=== PATIENT | female | born 1965 | race Caucasian/White ===

== ENCOUNTER 2019-10-20 07:22 | Day surgery (SDC) | payer BC ==
[~2019-10-20 07:22] MED LIST: Lactated Ringers 1,000 ML IV SCH; Lidocaine 1%/Sod Bicarbonate in NS 8.4% 1 ML Syringe IDERM PRN; Sodium Chloride 0.9% 10 ML Syringe FLUSH PRN
[2019-10-20] MEDS ORDERED: Bupivacaine 0.5% 30 ML SDV ONE (07:31)
[2019-10-20] MEDS ORDERED: Lidocaine 1% with EPINEPHrine 1:100,000 20 ML MDV ONE (07:31)
--- NOTE | 2019-10-20 08:37 | PCM.OPNOTE ---
- General Post-Op/Procedure Note Date of Surgery/Procedure: 10/20/19 Operative Procedure(s): Laparoscopic assisted vaginal hysterectomy and bilateral salpingectomy Findings: Small, atrophic appearing ovaries. Large, bulbous uterus. Moderate amount of scar tissue in upper abdomen, presumed to be from prior bowel resection. Minimal if any scar tissue in pelvis Pre Op Diagnosis: Abnormal uterine bleeding - Failed medical management. Morbid obesity - BMI 46 Post-Op Diagnosis: Same Anesthesia Technique: General ET Tube Primary Surgeon: Lisa Hawley Secondary Surgeon: Lainey Sanches Anesthesia Provider: Carlos Duque Reason Director Of Knowledge Management Was Necessary: BMI of patient, speed/safety of procedure Pathology: Cervix, uterus, and bilateral fallopian tubes sent to pathology for further evaluation Fluid Replacement, Intraop: 2,800 Output, Urine Amount: 100 EBL in mLs: 400 Complications: None Condition: Good Free Text/Narrative:: The risks, benefits, indications, potential complications, and alternatives were explained to the patient and informed consent obtained. The patient was taken to the Operating Room where general anesthesia was induced without complication. The patient was placed in dorsal lithotomy with Burke Stirrups and an exam under anesthesia revealed the findings detailed above. The patient was then prepped and draped in the usual sterile fashion. A sterile bivalve speculum was placed into the vagina and the anterior lip of the cervix was grasped with a single tooth tenaculum and a [employer] uterine manipulator was placed to allow uterine manipulation throughout the procedure. The speculum and single tooth tenaculum were removed from the vagina. A Martínez catheter was placed in sterile fashion. Attention was then turned to the patients abdomen where a small, vertical incision was made inferior to the umbilicus along scar from prior abdominal surgery. Incision carried down to fascia which was grasped with rich clamps and sharply incised. Two ends of fascia tagged with sutures of 0 Vicryl. Ther peritoneum was grasped and elevated with hemostat and incised sharply with a Metzenbaum scissors. A 10 mm trocar was then placed into the abdomen under direct visualization. A pneumoperitoneum was obtained with C02 gas to a pressure of 15 mm Hg. 5 mm skin incisions were made in both the left and right lower quadrants approximately 10 cm lateral and 3 cm inferior to the umbilicus. 5 mm blunt trocars were inserted into the abdomen under direct visualization with care to avoid the abdominal wall vasculature. A blunt probe and grasper were inserted through the accessory ports and a survey of the abdomen revealed the findings detailed above. The right fallopian tube was elevated with the blunt graspers at the fimbriated end. The LigaSure was used to grasp, elevate, cauterize and transect the mesosalpinx from the fimbriated end toward the uterus. It was transected at level of the uterus using the LigaSure and removed easily out the 5 mm port. The round ligament on the right was then elevated, cauterized, and transected with the Ligasure. Hemostasis was noted. Next, the vesicouterine peritoneum was elevated gently with a blunt grasper and the LigaSure and blunt dissection were used to make a bladder flap. Two more small bites along the right side of the uterus were made with the Ligasure to skeletonize the uterine artery. Hemostasis was noted. The exact same procedure was carried out on the left. The CO2 gas was turned off and the laparoscope was removed. Attention was then turned to the vaginal portion of the procedure. A short weighted speculum was placed in the vagina, and the cervix was grasped with a single toothed tenaculum. The cervix was injected circumferentially with 10 mL of 1% lidocaine with dilute epinephrine. The cervix was then circumferentially incised with a scalpel. A Raytec was used to bluntly dissect the cervix circumferentially until an avascular plane was obtained. The posterior cul-de-sac was entered sharply without difficulty. A 0-Vicryl pop-off suture was placed at six o'clock to include the posterior vaginal mucosa and posterior peritoneum. This stitch was tagged with a straight clamp to help with vaginal cuff closure at the end of the case. The short weighted speculum was replaced by the long weighted speculum. The uterosacral ligaments were grasped on either side with the LigaSure, cauterized, and transected. The bladder was dissected off the pubovesical cervical fascia anteriorly with a sponge and blunt dissectio n. The anterior cul-de-sac was then entered sharply without difficulty. The cardinal ligaments were then serially clamped on both sides with the LigaSure, cauterized, and transected. The uterine arteries were then clamped, cauterized, and transected. The fundus and adnexa were confirmed to be free of any further peritoneal attachments and then were pulled out through the vagina. The posterior peritoneum was closed with a running, locked sutures of 0 Vicryl. Next, the vaginal cuff was closed with two separate sutures of 0 Vicryl, started at either apex, and run towards the midline. Attention was then again turned to the abdomen. All members of the surgical team changed gloves. The laparoscope was again inserted and the abdomen was again insufflated with CO2. The pedicles were again visualized. Dionisio seal was placed along the vaginal cuff. Hemostasis was confirmed. The patient was taken out of Trendelenberg position. The accessory trocars were removed under direct visualization. The pneumoperitoneum was allowed to escape. The umbilical trocar was removed and lastly the camera was removed from the abdomen under direct visualization to confirm no herniation into the port site. The previous sutures of 0 Vicryl were tied together to reapproximate the fascia of this port site. All skin incisions were re-approximated with 4-0 Monocryl and sealed with Dermabond. Hemostasis was noted. Approximately 10 cc of 0.25% Marcaine was injected into the subcutaneous tissues surrounding the skin incisions for local anesthesia. All sponge, lap, needle, and instrument counts were correct x 2. The patient tolerated the procedure well and there were no complications. Martínez catheter removed and patient taken to PACU
--- NOTE | 2019-10-20 08:42 | PCM.PREANE ---
Preanesthetic Assessment - Procedure Proposed Procedure: lap assisted vag hyst - Anesthesia/Transfusion/Family Hx Anesthesia History: Prior Anesthesia Without Reaction Family History of Anesthesia Reaction: No Transfusion History: No Prior Transfusion(s) - Review of Systems General: No Symptoms Pulmonary: No Symptoms Cardiovascular: No Symptoms Gastrointestinal: No Symptoms Neurological: No Symptoms Other: Reports: Diabetes, Depression, Anxiety - Physical Assessment NPO Status Date: 10/19/19 NPO Status Time: 21:00 Vital Signs: 142/76 84 96% Height: 5 ft 7 in Weight: 134.1 kg ASA Class: 3 Mental Status: Alert & Oriented x3 Airway Class: Mallampati = 1 Dentition: Reports: Normal Dentition Thyro-Mental Finger Breadths: 3 Mouth Opening Finger Breadths: 3 ROM/Head Extension: Full Lungs: Clear to Auscultation, Normal Respiratory Effort Cardiovascular: Regular Rate, Regular Rhythm - Lab Values: Laboratory Last Values POC Glucose 181 mg/dL (70-105) H 10/20/19 07:35 COVID-19 PCR Not detected (NOT DETECT) 10/18/19 13:00 - Allergies Allergies/Adverse Reactions: Allergies Allergy/AdvReac Type Severity Reaction Status Date / Time exenatide [From Bydureon] AdvReac Nausea Verified 10/20/19 08:01 liraglutide [From Victoza] AdvReac Other Verified 10/20/19 08:01 metformin AdvReac Nausea Verified 10/20/19 08:01 - Blood Blood Available: Yes - Acknowledgements Anesthesia Type Planned: General Anesthesia Pt an Appropriate Candidate for the Planned Anesthesia: Yes Alternatives and Risks of Anesthesia Discussed w Pt/Guardian: Yes Pt/Guardian Understands and Agrees with Anesthesia Plan: Yes PreAnesthesia Questionnaire HEENT History: Reports: Cataract Cardiovascular History: Reports: Hypertension Respiratory History: Reports: None Gastrointestinal History: Reports: None CAMPUS 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: , Spontaneous Other OB/BYN History: DIlation and currettage, dysmenorrhea, irregular menses Musculoskeletal History: Reports: Arthritis Psychiatric History: Reports: Anxiety, Depression Endocrine/Metabolic History: Reports: Diabetes, Type II, Obesity/BMI 30+, Vitamin D Deficiency Hematologic History: Reports: Anemia - Past Surgical History GI Surgical History: Reports: Small Bowel - SUBSTANCE USE Smoking Status *Q: Never Smoker Tobacco Use Within Last Twelve Months: No Second Hand Smoke Exposure: Yes Days Per Week of Alcohol Use: 0 Recreational Drug Use History: No - HOME MEDS Home Medications: Home Meds Ascorbic Acid [Vitamin C] 1,000 mg PO DAILY 10/19/19 [History] Aspirin 81 mg PO DAILY 10/19/19 [History] Cyanocobalamin (Vitamin B12) [Vitamin B12] 500 mcg PO DAILY 10/19/19 [History] Hydrochlorothiazide/Losartan [Hyzaar 50-12.5 MG] 1 tab PO DAILY 10/19/19 [History] LORazepam [Ativan] 0.5 mg PO Q8HR PRN 10/19/19 [History] Meloxicam [Mobic] 15 mg PO DAILY 10/19/19 [History] Multivitamin [Multivitamins] 1 cap PO DAILY 10/19/19 [History] Potassium Gluconate [Potassium] 99 mg PO BID 10/19/19 [History] Rosuvastatin [Crestor] 5 mg PO BEDTIME 10/19/19 [History] SitaGLIPtin [Januvia] 100 mg PO DAILY 10/19/19 [History] - CURRENT (IN HOUSE) MEDS Current Meds: Current Medications Lactated Ringer's (Ringers, Lactated) 1,000 mls @ 125 mls/hr IV ASDIRECTED KIMBERLY Last Admin: 10/20/19 08:31 Dose: 125 mls/hr Documented by: Lidocaine/Sodium Bicarbonate (Buffered Lidocaine 1% In Ns 8.4%) 0.25 ml IDERM ONETIME PRN PRN Reason: Prior to IV Start Stop: 10/20/19 18:00 Last Admin: 10/20/19 08:31 Dose: 0.25 ml Documented by: Sodium Chloride (Saline Flush) 10 ml FLUSH ASDIRECTED PRN PRN Reason: Keep Vein Open Stop: 10/20/19 18:00 Discontinued Medications Bupivacaine HCl (Marcaine 0.5%) Confirm Administered Dose 30 ml .ROUTE .STK-MED ONE Stop: 10/20/19 07:32 Lidocaine/Epinephrine (Xylocaine 1% With Epinephrine 1:100,000) Confirm Administered Dose 20 ml .ROUTE .STK-MED ONE Stop: 10/20/19 07:32
[2019-10-20] MEDS ORDERED: Ondansetron 4 MG/2 ML SDV ONE (09:02)
[2019-10-20] MEDS ORDERED: Rocuronium 50 MG/5 ML Vial ONE ×2 (09:02→10:43)
[2019-10-20] MEDS ORDERED: Propofol 200 MG/20 ML SDV ONE (09:02)
[2019-10-20] MEDS ORDERED: Midazolam 1 MG/ML 2 ML SDV ONE (09:03)
[2019-10-20] MEDS ORDERED: fentaNYL 250 MCG/5 ML SDV ONE ×2 (09:03→10:12)
[2019-10-20] MEDS ORDERED: Lidocaine 1% 4 ML ONE (09:03)
[2019-10-20] MEDS ORDERED: ceFAZolin 1 GM Vial ONE (09:06)
[2019-10-20] MEDS ORDERED: HYDROmorphone 0.5 MG/0.5 ML Syringe ONE ×2 (10:10)
[2019-10-20] MEDS ORDERED: Lactated Ringers 1,000 ML ONE (11:02)
[2019-10-20] MEDS ORDERED: ePHEDrine Sulfate/0.9% NaCl/Pf 25 MG/5 ML SYRINGE IV ONE (11:02)
[2019-10-20] MEDS ORDERED: Ketorolac 30 MG/ML SDV ONE (12:26)
[2019-10-20] MEDS ORDERED: fentaNYL 100 MCG/2 ML SDV IVPUSH PRN (12:54)
--- NOTE | 2019-10-20 12:55 | PCM.POSTAN ---
POST ANESTHESIA ASSESSMENT - MENTAL STATUS Mental Status: Somnolent - VITAL SIGNS Vital Signs: Last Vital Signs Temp 36.8 C 10/20/19 07:30 Pulse 84 10/20/19 07:30 Resp 16 10/20/19 07:30 BP 142/76 H 10/20/19 07:30 Pulse Ox 96 10/20/19 07:30 - RESPIRATORY Respiratory Status: Respiratory Rate WNL, Airway Patent, O2 Saturation Stable, Supplemental Oxygen - CARDIOVASCULAR CV Status: Pulse Rate WNL, Blood Pressure Stable - GASTROINTESTINAL GI Status: No Symptoms - PAIN Pain Score: 0 - POST OP HYDRATION Hydration Status: Adequate & Stable - OBSERVATIONS Free Text/Narrative:: no anesthesia complications oted
--- NOTE | 2019-10-20 14:26 | PCM48HPAN ---
Post Anesthesia Note - EVALUATION WITHIN 48HRS OF ANESTHETIC Vital Signs in Normal Range: Yes Patient Participated in Evaluation: No (Per SILKE Bryant) Respiratory Function Stable: Yes Airway Patent: Yes Cardiovascular Function Stable: Yes Hydration Status Stable: Yes Pain Control Satisfactory: Yes Nausea and Vomiting Control Satisfactory: Yes Mental Status Recovered: Yes Vital Signs: Last Vital Signs Temp 36.2 C 10/20/19 13:45 Pulse 81 10/20/19 14:00 Resp 11 L 10/20/19 14:00 BP 144/74 H 10/20/19 14:00 Pulse Ox 98 10/20/19 14:00 - COMMENTS/OBSERVATIONS Free Text/Narrative:: no anesthesia complications noted
[2019-10-20] MEDS ORDERED: Ondansetron 4 MG/2 ML SDV IVPUSH SCH (14:30)
[2019-10-20] MEDS ORDERED: Promethazine 25 MG in Sodium Chloride 0.9% 50 ML IV ONE (15:54)
[2019-10-20] MEDS ORDERED: Acetaminophen/oxyCODONE 325-5 MG Tab PO PRN (15:55)
== END 2019-10-20 20:05 | disposition home or self-care (01) ==
LOC: JD.SDS 07:22 → JD.MS 14:37 → JD.SDS 20:05
PROVIDERS: ATTEND Obstetrics & Gynecology
DX: D25.2 Subserosal leiomyoma of uterus (principal); N72 Inflammatory disease of cervix uteri; N88.8 Other specified noninflammatory disorders of cervix uteri; N80.0 Endometriosis of uterus; F41.9 Anxiety disorder, unspecified; F32.9 Major depressive disorder, single episode, unspecified; E11.9 Type 2 diabetes mellitus without complications; I10 Essential (primary) hypertension; E66.01 Morbid (severe) obesity due to excess calories; Z11.59 Encounter for screening for other viral diseases; Z79.82 Long term (current) use of aspirin; Z88.8 Allergy status to other drugs, medicaments and biological substances; Z79.899 Other long term (current) drug therapy; Z79.84 Long term (current) use of oral hypoglycemic drugs; Z68.42 Body mass index [BMI] 45.0-49.9, adult; Z77.22 Contact with and (suspected) exposure to environmental tobacco smoke (acute) (chronic)
CPT/HCPCS: 36415; 51701; 58552; 82962; 86850; 86900; 86901; 87635; A9270; J0171; J0690; J1170; J1885; J2001; J2250; J2405; J2550; J2704; J3010; J3490; J7050; J7120; 00944; U0002

== ENCOUNTER 2020-03-13 17:58 | Emergency (ER) | payer BC ==
[2020-03-13] MEDS ORDERED: Sodium Chloride 0.9% 10 ML Syringe FLUSH PRN (18:28)
[2020-03-13] MEDS ORDERED: Ketorolac 30 MG/ML SDV IVPUSH ONE (19:16)
[2020-03-13] MEDS ORDERED: Sodium Chloride 0.9% 1,000 ML IV STA (19:16)
[2020-03-13] MEDS ORDERED: Iopamidol 612 MG/ML 50 ML SDV IVPUSH ONE (19:30)
[2020-03-13] MEDS ORDERED: Iopamidol 612 MG/ML 100 ML Bottle IVPUSH ONE (19:30)
[2020-03-13] MEDS ORDERED: Sodium Chloride 0.9% 10 ML Syringe FLUSH ONE (19:30)
--- NOTE | 2020-03-13 20:30 | EDM.PDOC ---
ED HPI GENERAL MEDICAL PROBLEM - General Chief Complaint: Back Pain or Injury Stated Complaint: BACK PAIN/SENT OVER FROM [facility] Time Seen by Provider: 03/13/20 18:24 Source of Information: Reports: Patient, RN Notes Reviewed, Other ([facility]) History Limitations: Reports: No Limitations - History of Present Illness INITIAL COMMENTS - FREE TEXT/NARRATIVE: Patient is a 55-year-old female presenting to the emergency department with complaints of left-sided flank pain. Symptoms began on Friday of last week and had getting progressively worse since that time. She has taken Aleve and Tylenol with little to no relief. Pain is worsened by movement and deep breathing. She was seen at the walk-in clinic at [facility] prior to coming to the ER. Urinalysis was completed there and showed findings consistent with a urinary tract infection. She was sent here for further evaluation for concerns of a possible pyelonephritis. Patient denies any dysuria or hematuria. She has no history of kidney stones. Denies any fever chills Left Back Pain Score (Numeric/FACES): 10 - Related Data Allergies Allergy/AdvReac Type Severity Reaction Status Date / Time exenatide [From Bydureon] AdvReac Nausea Verified 03/13/20 18:19 liraglutide [From Victoza] AdvReac Other Verified 03/13/20 18:19 metformin AdvReac Nausea Verified 03/13/20 18:19 Home Meds: Home Meds Ascorbic Acid [Vitamin C] 1,000 mg PO DAILY 10/19/19 [History] Aspirin 81 mg PO DAILY 10/19/19 [History] Hydrochlorothiazide/Losartan [Hyzaar 50-12.5 MG] 1 tab PO DAILY 10/19/19 [History] LORazepam [Ativan] 0.5 mg PO Q8HR PRN 10/19/19 [History] Meloxicam [Mobic] 15 mg PO DAILY 10/19/19 [History] Multivitamin [Multivitamins] 1 cap PO DAILY 10/19/19 [History] Potassium Gluconate [Potassium] 99 mg PO BID 10/19/19 [History] Rosuvastatin [Crestor] 5 mg PO BEDTIME 10/19/19 [History] SitaGLIPtin [Januvia] 100 mg PO DAILY 10/19/19 [History] Cholecalciferol (Vitamin D3) [Vitamin D3] 5,000 units PO DAILY 03/13/20 [History] Ciprofloxacin [Ciprofloxacin HCl] 500 mg PO Q12H 7 Days #14 tab 03/13/20 [Rx] Hydrocodone/Acetaminophen [Hydrocodon-Acetaminophen 5-325] 1 each PO Q4H PRN #15 tablet 03/13/20 [Rx] Past Medical History HEENT History: Reports: Cataract Cardiovascular History: Reports: High Cholesterol, Hypertension Respiratory History: Reports: None Gastrointestinal History: Reports: None CERTIFIED [facility] ENGINEER History: Reports: , Spontaneous Other CERTIFIED [facility] ENGINEER History: DIlation and currettage, dysmenorrhea, irregular menses Musculoskeletal History: Reports: Arthritis Neurological History: Reports: Migraines Psychiatric History: Reports: Anxiety, Depression Endocrine/Metabolic History: Reports: Diabetes, Type II, Obesity/BMI 30+, Vitamin D Deficiency Hematologic History: Reports: Anemia - Infectious Disease History Infectious Disease History: Reports: Chicken Pox - Past Surgical History GI Surgical History: Reports: Small Bowel Female Surgical History: Reports: Hysterectomy Social & Family History - Family History Family Medical History: No Pertinent Family History - Tobacco Use Tobacco Use Status *Q: Never Tobacco User Second Hand Smoke Exposure: No - Caffeine Use Caffeine Use: Reports: None - Recreational Drug Use Recreational Drug Use: No ED ROS GENERAL - Review of Systems Review Of Systems: See Below Constitutional: Reports: No Symptoms. Denies: Fever, Chills, Weakness HEENT: Reports: No Symptoms Respiratory: Reports: No Symptoms. Denies: Shortness of Breath, Cough Cardiovascular: Reports: No Symptoms Endocrine: Reports: No Symptoms GI/Abdominal: Reports: No Symptoms : Reports: Flank Pain. Denies: Dysuria, Hematuria Musculoskeletal: Reports: Back Pain (Left lower) Skin: Reports: No Symptoms Neurological: Reports: No Symptoms Psychiatric: Reports: No Symptoms Hematologic/Lymphatic: Reports: No Symptoms Immunologic: Reports: No Symptoms ED EXAM,LOWER BACK PAIN/INJURY - Physical Exam Exam: See Below Exam Limited By: No Limitations General Appearance: Alert, WD/WN, No Apparent Distress Respiratory/Chest: No Respiratory Distress, Lungs Clear, Normal Breath Sounds, No Accessory Muscle Use, Chest Non-Tender Cardiovascular: Normal Peripheral Pulses, Regular Rate, Rhythm, No Edema, No Gallop, No JVD, No Murmur, No Rub GI/Abdominal: Normal Bowel Sounds, Soft, Non-Tender, No Organomegaly, No Distention, No Abnormal Bruit, No Mass Back Exam: Normal Inspection, Full Range of Motion, CVA Tenderness (L) (Tenderness to light palpation.) Neurological: Alert, Normal Mood/Affect, Normal Dorsiflexion, CN II-XII Intact, Normal Plantar Flexion, Normal Gait, Normal Reflexes, No Motor/Sensory Deficits, Oriented x 3 Psychiatric: Normal Affect, Normal Mood Skin Exam: Warm, Dry, Intact, Normal Color, No Rash Course - Vital Signs Last Recorded V/S: Last Vital Signs Temp 97.0 F 03/13/20 18:15 Pulse 82 03/13/20 18:15 Resp 20 03/13/20 18:15 BP 170/89 H 03/13/20 18:15 Pulse Ox 97 03/13/20 18:15 - Orders/Labs/Meds Orders: Active Orders 24 hr Category Date Time Status Peripheral IV Care [RC] . DIRECTED Care 03/13/20 18:29 Active Abdomen Pelvis w Cont [CT] Stat Exams 03/13/20 19:17 Taken UA W/MICROSCOPIC [URIN] Stat Lab 03/13/20 20:17 Ordered Sodium Chloride 0.9% [Saline Flush] Med 03/13/20 18:28 Active 10 ml FLUSH ASDIRECTED PRN Peripheral IV Insertion Adult [OM.PC] Stat Oth 03/13/20 18:28 Ordered Medication Orders Sodium Chloride (Saline Flush) 10 ml FLUSH ASDIRECTED PRN PRN Reason: Keep Vein Open Last Admin: 03/13/20 18:46 Dose: 10 ml Documented by: LAN Labs: Laboratory Tests 03/13/20 03/13/20 Range/Units 18:45 18:45 WBC 7.09 (3.98-10.04) K/mm3 RBC 4.52 (3.98-5.22) M/mm3 Hgb 13.4 D (11.2-15.7) gm/dl Hct 41.3 (34.1-44.9) % MCV 91.4 (79.4-94.8) fl MCH 29.6 (25.6-32.2) pg MCHC 32.4 (32.2-35.5) g/dl RDW Std Deviation 43.3 (36.4-46.3) fL Plt Count 273 (182-369) K/mm3 MPV 8.8 L (9.4-12.3) fl Neut % (Auto) 57.5 (34.0-71.1) % Lymph % (Auto) 32.9 (19.3-51.7) % Sumner % (Auto) 6.6 (4.7-12.5) % Eos % (Auto) 2.4 (0.7-5.8) Baso % (Auto) 0.3 (0.1-1.2) % Neut # (Auto) 4.08 (1.56-6.13) K/mm3 Lymph # (Auto) 2.33 (1.18-3.74) K/mm3 Sumner # (Auto) 0.47 H (0.24-0.36) K/mm3 Eos # (Auto) 0.17 (0.04-0.36) K/mm3 Baso # (Auto) 0.02 (0.01-0.08) K/mm3 Sodium 139 (136-145) mEq/L Potassium 4.0 (3.5-5.1) mEq/L Chloride 104 (98-107) mEq/L Carbon Dioxide 26 (21-32) mEq/L Anion Gap 13.0 (5-15) BUN 33 H (7-18) mg/dL Creatinine 1.0 (0.55-1.02) mg/dL Est Cr Clr Drug Dosing 62.54 mL/min Estimated GFR (MDRD) 58 (>60) mL/min BUN/Creatinine Ratio 33.0 H (14-18) Glucose 133 H (74-106) mg/dL Calcium 9.2 (8.5-10.1) mg/dL Total Bilirubin 0.3 (0.2-1.0) mg/dL AST 20 (15-37) U/L ALT 40 (14-59) U/L Alkaline Phosphatase 70 (46-116) U/L C-Reactive Protein 0.9 (<1.0) mg/dL Total Protein 7.1 (6.4-8.2) g/dl Albumin 3.7 (3.4-5.0) g/dl Globulin 3.4 gm/dL Albumin/Globulin Ratio 1.1 (1-2) Meds: Medications Generic Name Dose Route Start Last Admin Trade Name Freq PRN Reason Stop Dose Admin Sodium Chloride 10 ml 03/13/20 18:28 03/13/20 18:46 Saline Flush FLUSH 10 ml ASDIRECTED PRN Administration Keep Vein Open Discontinued Medications Generic Name Dose Route Start Last Admin Trade Name Clary PRN Reason Stop Dose Admin Sodium Chloride 1,000 mls @ 999 mls/hr 03/13/20 19:16 03/13/20 19:27 Normal Saline IV 03/13/20 20:16 999 mls/hr NOW STA Administration Iopamidol 50 ml 03/13/20 19:30 03/13/20 20:00 Isovue-300 (61%) IVPUSH 03/13/20 19:31 25 ml ONETIME ONE Administration Iopamidol 100 ml 03/13/20 19:30 03/13/20 20:00 Isovue-300 (61%) IVPUSH 03/13/20 19:31 100 ml ONETIME ONE Administration Ketorolac Tromethamine 30 mg 03/13/20 19:16 03/13/20 19:27 Toradol IVPUSH 03/13/20 19:17 30 mg ONETIME ONE Administration Sodium Chloride 10 ml 03/13/20 19:30 03/13/20 20:00 Saline Flush FLUSH 03/13/20 19:31 10 ml ONETIME ONE Administration - Re-Assessments/Exams Free Text/Narrative Re-Assessment/Exam: Patient is a 55-year-old female presenting to the emergency department with complaints of left-sided flank pain since last Friday. Symptoms have been progressively worsening. She describes worsening of pain with any movement or deep breathing. On exam, she is tender to the left flank even with superficial palpation. Urinalysis completed at [facility] show 6-10 WBCs and moderate bacteria. I suspect her flank pain may be musculoskeletal in nature as it is quite tender to even light touch. I have ordered blood work including CBC, CMP, CRP, urinalysis, and a CT scan of the abdomen pelvis with IV contrast only. 03/13/20 20:32 Hematology was grossly unremarkable. WBCs and CRP were normal, indicating that it is less likely that she has pyelonephritis. CT scan of the abdomen pelvis showed no acute intracranial pathology. Both kidneys are normal in parenchymal bulk. No hydronephrosis, stone, or solid mass. There is no evidence of perinephric stranding. Urinalysis is pending, however we do of the results from [facility]. I will treat for a urinary tract infection with the possibility of an underlying pyelonephritis with Cipro. We'll also write prescription for [place] for pain. Recommend heat to the area of discomfort. Urinalysis will be sent for culture and she will be notified of results when they're available. Discharge instructions as documented. Departure - Departure Time of Disposition: 20:32 Disposition: Home, Self-Care 01 Condition: Good Clinical Impression: Flank pain UTI (urinary tract infection) Qualifiers: Urinary tract infection type: site unspecified Hematuria presence: without he maturia Qualified Code(s): N39.0 - Urinary tract infection, site not specified - Discharge Information *PRESCRIPTION DRUG MONITORING PROGRAM REVIEWED*: Yes *COPY OF PRESCRIPTION DRUG MONITORING REPORT IN PATIENT MELODIE: No Prescriptions: Ciprofloxacin [Ciprofloxacin HCl] 500 mg PO Q12H 7 Days #14 tab Hydrocodone/Acetaminophen [Hydrocodon-Acetaminophen 5-325] 1 each PO Q4H PRN #15 tablet PRN Reason: Pain Instructions: Flank Pain, Adult, [id number], Urinary Tract Infection, Adult Referrals: Bere Dubon PA-C [Primary Care Provider] - Additional Instructions: You were seen in the emergency department for left-sided flank pain that has been progressively worsening since Friday of last week. Urinalysis was completed at [facility] and show that you have a urinary tract infection. Further work-up in the ER included blood work and a CT scan of your abdomen pelvis, as well as another urine sample. Results of your work-up show that you have a urinary tract infection, however there is no evidence of significant systemic infection or inflammation. CT scan of the abdomen pelvis was normal did not show any signs of pyelonephritis (kidney infection), the last, you been started on an antibiotic which will cover both urinary tract infection and for the possibility of an underlying pyelonephritis. You have also been provided a prescription of [place] for pain. Recommend that you take ibuprofen routinely for pain management as this has an anti-inflammatory effect to it as well as pain relief. For pain not relieved by ibuprofen, you may take 1 [place] every [address] hours[address] not work or drive for 12 hours after taking this medication as it can be sedating. Complete your course of antibiotic in its entirety. Do not stop even if you are feeling better. If you experience any new or worsening symptoms of concern, please do not hesitate to return to the emergency department for reevaluation. Sepsis Event Note (ED) - Evaluation Sepsis Screening Result: No Definite Risk - Focused Exam Vital Signs: Vital Signs Temp Pulse Resp BP Pulse Ox 03/13/20 18:15 97.0 F 82 20 170/89 H 97 - My Orders Last 24 Hours: My Active Orders 03/13/20 18:28 Sodium Chloride 0.9% [Saline Flush] 10 ml FLUSH ASDIRECTED PRN Peripheral IV Insertion Adult [OM.PC] Stat 03/13/20 18:29 Peripheral IV Care [RC] . DIRECTED 03/13/20 19:17 Abdomen Pelvis w Cont [CT] Stat 03/13/20 20:17 UA W/MICROSCOPIC [URIN] Stat - Assessment/Plan Last 24 Hours: My Active Orders 03/13/20 18:28 Sodium Chloride 0.9% [Saline Flush] 10 ml FLUSH ASDIRECTED PRN Peripheral IV Insertion Adult [OM.PC] Stat 03/13/20 18:29 Peripheral IV Care [RC] . DIRECTED 03/13/20 19:17 Abdomen Pelvis w Cont [CT] Stat 03/13/20 20:17 UA W/MICROSCOPIC [URIN] Stat
--- NOTE | 2020-03-14 08:49 | CT ---
PROCEDURE INFORMATION: Exam: CT Abdomen And Pelvis With Contrast Exam date and time: 03/13/2020 7:34 PM Age: 55 years old Clinical indication: Abdominal pain; Patient HX: Lt flank pain, UTI TECHNIQUE: Imaging protocol: Computed tomography of the abdomen and pelvis with intravenous contrast. Contrast material: ISOVUE 300; Contrast volume: 125 ml; Contrast route: INTRAVENOUS (IV); COMPARISON: US Transvaginal Non OB 06/16/2019 12:51 PM FINDINGS: Liver: Normal in architecture. No suspicious hepatic mass. Gallbladder and bile ducts: No calcified stones or local inflammation around the gallbladder. No ductal dilatation. Pancreas: Normal parenchymal bulk and the gland is sharply marginated. No local inflammation and ductal dilatation. No organized fluid collection, mass, or calcification. Spleen: The spleen is normal in size. No splenic mass or abnormal fluid collection. Adrenal glands: Normal. No mass. Kidneys and ureters: Both kidneys are normal in parenchymal bulk. No hydronephrosis, stone, or solid mass. Stomach and bowel: No significant abnormalities of the stomach. There are no dilated or thickened small bowel loops. Gas and stool are seen in the colon to the rectum. No mass. Appendix: The appendix is seen. It is normal. Intraperitoneal space: No ascites. No abscess. No inflammation within the intra- abdominal fat. No pneumoperitoneum. No mass. Vasculature: Multiple phleboliths are present bilaterally low within the pelvis. There is atherosclerotic calcification of the aorto-iliac tree. There is no abdominal aortic aneurysm. Lymph nodes: No enlarged lymph nodes. Urinary bladder: Unremarkable as visualized. Reproductive: The uterus is surgically absent. No adenexal masses. Bones/joints: Age appropriate. No acute fracture. No dislocation. There are no suspicious lytic or osteosclerotic lesions. Soft tissues: See "Intraperitoneal space" finding. IMPRESSION: No sign of acute intra-abdominal pathology. Thank you for allowing us to participate in the care of your patient. Dictated and Authenticated by: Burke Vasquez MD 03/13/2020 9:18 PM Central Time ([place] & [place]) [facility]
== END 2020-03-13 21:08 | disposition home or self-care (01) ==
LOC: JD.ED 17:58
DX: N39.0 Urinary tract infection, site not specified (principal); E78.00 Pure hypercholesterolemia, unspecified; I10 Essential (primary) hypertension; M19.90 Unspecified osteoarthritis, unspecified site; E66.9 Obesity, unspecified; Z68.42 Body mass index [BMI] 45.0-49.9, adult; E11.9 Type 2 diabetes mellitus without complications; Z79.82 Long term (current) use of aspirin; Z79.84 Long term (current) use of oral hypoglycemic drugs; Z79.899 Other long term (current) drug therapy
CPT/HCPCS: 36415; 74177; 80053; 81001; 85025; 86140; 87077; 87086; 87186; 96374; 99284; J1885; J7030; Q9967

== ENCOUNTER 2021-07-06 15:28 | Emergency (ER) | payer BC | END 2021-07-06 18:53 | disposition home or self-care (01) | LOC: JD.ED 15:28 | DX: R04.2 Hemoptysis (principal); E11.9 Type 2 diabetes mellitus without complications; I10 Essential (primary) hypertension; E66.9 Obesity, unspecified; Z68.43 Body mass index [BMI] 50.0-59.9, adult; Z88.8 Allergy status to other drugs, medicaments and biological substances; Z79.82 Long term (current) use of aspirin; Z79.899 Other long term (current) drug therapy | CPT/HCPCS: 36415; 71045; 71045-26; 80053; 84484; 85025; 85379; 85610; 85730; 93005; 93010; 99284-25; 99285 ==

== ENCOUNTER 2024-09-08 17:49 | Emergency (ER) | payer BC | END 2024-09-08 21:26 | disposition left against medical advice (07) | LOC: JD.ED 17:49 | DX: Z53.21 Procedure and treatment not carried out due to patient leaving prior to being seen by health care provider (principal) | CPT/HCPCS: 93971-26-LT; 93971-LT ==